=== PATIENT | male | born 1995 | race American Indian/Alaskan Native ===

== ENCOUNTER 2019-02-10 11:39 | Outpatient (CLI) | payer OTHER ==
--- NOTE | 2019-02-10 12:28 | XRay Report ---
RIGHT WRIST, 4 VIEWS: History: Pain and swelling. Routine views demonstrate the carpal bones to be well mineralized with well preserved bony mineralization and interosseous joint spaces. The carpal and adjacent articular bones have normal contours. The surrounding soft tissues are unremarkable. IMPRESSION: Unremarkable right wrist.
== END 2019-02-10 11:40 | disposition home or self-care (01) ==
LOC: SPVIMAG 11:39
PROVIDERS: ATTEND Internal Medicine
DX: M25.431 Effusion, right wrist (principal)